=== PATIENT | female | born 1940 | race Caucasian/White ===

== ENCOUNTER → 2016-07-31 | Outpatient (CLI) | payer MEDICARE, BC ==
--- NOTE | 2016-08-05 13:16 | MM ---
Reason for exam: follow-up at short interval from prior study. Last mammogram was performed 6 months ago. History: Patient is postmenopausal. Took estrogen for 10 years beginning at age 48. Took progesterone for 10 years beginning at age 48. Physical Findings: Nurse did not find any significant physical abnormalities on exam. MG 3D Diag Mammo W/Cad LT CC and MLO view(s) were taken of the left breast. Prior study comparison: January 29, 2016, bilateral MG 3d screening mammo w/cad. There are scattered fibroglandular densities. No significant new findings when compared with previous films. These results were verbally communicated with the patient and result sheet given to the patient on 07/31/16. ASSESSMENT: Benign, BI-RAD 2 RECOMMENDATION: Return to routine screening mammogram schedule for both breasts. Back on schedule January 2017.
== END | disposition home or self-care (01) ==
LOC: RADMAMWWP 10:45
PROVIDERS: ATTEND Family Medicine
DX: R92.8 Other abnormal and inconclusive findings on diagnostic imaging of breast (principal)
CPT/HCPCS: G0206; G0279

== ENCOUNTER → 2017-02-20 | Outpatient (CLI) | payer MEDICARE, BC ==
--- NOTE | 2017-02-20 15:04 | BD ---
EXAMINATION TYPE: MG DEXA axial skeleton. DATE OF EXAM: 02/20/2017 COMPARISON: DEXA bone scan January 27, 2015 CLINICAL HISTORY: Height: 63 Weight: 201.0 FRAX RISK QUESTIONS: Alcohol (3 or more units per day): no Family History (Parent hip fracture): no Glucocorticoids (More than 3mos): no (Ex: prednisone, prednisolone, methylprednisolone, dexamethasone, and hydrocortisone). History of Fracture in Adulthood: no Secondary Osteoporosis: 1. Type 1 Diabetes: no 2. Hyperthyroidism: no 3. Menopause before 45: no 4. Malnutrition: no 5. Chronic liver disease: no Rheumatoid Arthritis: no Current Tobacco Use: no RISK FACTORS HISTORY OF: Hip Fracture (Right/Left): no Spine Fracture: no History of Wrist Fracture: right wrist When: age 15 Surgery to Spine/Hip(right/left)/Wrist (right/left): right wrist Family History of Osteoporosis: no Active: yes Diet low in dairy products/other sources of calcium: no Postmenopausal woman: around age 49 Lost more than 2 inches in height since high school: no Frequent falls: no Poor Health: no Hyperparathyroidism: no Adrenal Insufficiency: no MEDICATIONS: prilosec, vit d Thyroid Medications: synthroid How Long: since age 37 Additional History: EXAM MEASUREMENTS: Bone mineral densitometry was performed using the [employer] System. Bone mineral density as measured about the Lumbar spine is: ----- L1-L4(G/cm2): 1.152 T Score Values are as follows: ----- L2: -0.8 ----- L3: -0.1 ----- L4: 0.3 ----- L1-L4: -0.2 Bone mineral density has: decreased -4.2 % since study of: 01.27.2015 Bone mineral density about the R hip (g/cm2): 0.915 Bone mineral density about the L hip (g/cm2): 0.908 T Score values are as follows: -----R Neck: -0.9 -----L Neck: -0.9 -----R Total: -0.5 -----L Total: -0.1 Bone mineral density has: increased 0.5 % since study of: 01.27.2015 IMPRESSION: Normal (Values between +1 and -1 indicate normal bone mass). Consider repeating this study in 5 year s or sooner if there is some new clinical indication. NOTE: T-SCORE=SD OF THE YOUNG ADULT MEAN.
--- NOTE | 2017-02-21 09:51 | MM ---
Reason for exam: screening (asymptomatic). Last mammogram was performed 7 months ago. History: Patient is postmenopausal. Took estrogen for 10 years beginning at age 48. Took progesterone for 10 years beginning at age 48. Physical Findings: A clinical breast exam by your physician is recommended on an annual basis and results should be correlated with mammographic findings. MG 3D Screening Mammo W/Cad Bilateral CC and MLO view(s) were taken. Prior study comparison: July 31, 2016, left breast MG 3d diag mammo w/cad LT. January 29, 2016, bilateral MG 3d screening mammo w/cad. There are scattered fibroglandular densities. No suspicious abnormality. No significant changes when compared with prior studies. ASSESSMENT: Negative, BI-RAD 1 RECOMMENDATION: Routine screening mammogram of both breasts in 1 year.
== END | disposition home or self-care (01) ==
LOC: RADMAMWWP 13:48
PROVIDERS: ATTEND Obstetrics & Gynecology
DX: Z12.31 Encounter for screening mammogram for malignant neoplasm of breast (principal); Z13.820 Encounter for screening for osteoporosis
CPT/HCPCS: 77063; 77067; 77080

== ENCOUNTER 2017-10-06 14:38 | Emergency (ER) | payer MEDICARE, BC ==
--- NOTE | 2017-10-06 15:30 | ED ---
General Adult HPI - General Chief complaint: Abdominal Pain Stated complaint: abdominal pain/diarrhea Time Seen by Provider: 10/06/17 15:30 Source: patient Mode of arrival: ambulatory Limitations: no limitations - History of Present Illness Initial comments: Erica is a 77-year-old female who presents to the emergency department today for evaluation of 5 days of persistent diarrhea. Patient reports that on she developed diarrhea and abdominal cramping, she states that since that time any time she attempts to eat or drink anything she has bouts of abdominal cramping and yellow mucousy diarrhea. Patient reports that since development of the diarrhea she is developed some perianal irritation, she states that she's been applying Desitin cream to her anus due to the irritation and has noted some bright red blood when wiping. Patient reports that she previously has suffered from running constipation and has been on multiple medications for constipation in the past. She states that since Friday she has been taking Imodium with no improvement in her diarrhea. Patient reports that she cannot tolerate even drinking water without having diarrhea. Patient saw care this morning at a urgent care center where the in a glass of water so that she could provide a urine sample. Patient was able to provide a urine sample which is suggestive of a urinary tract infection. Patient was then advised to come to the ER for further evaluation. Patient reports that between leaving the urgent care and coming to the ER she had to stop 2 times to have bowel movements. Patient has no history of inflammatory or irritable bowel disease. She has no history of food ALLERGIES or diarrhea. Her last antibiotics were in June for treatment of a urinary tract infection. She has no history of C. diff - Related Data Home Medications Medication Instructions Recorded Confirmed Aspirin 81 mg PO DAILY 11/16/13 10/06/17 Diltiazem Cd [Cardizem Cd] 240 mg PO DAILY 11/16/13 10/06/17 Levothyroxine Sodium [Synthroid] 100 mcg PO DAILY 11/16/13 10/06/17 Triamterene-Hctz 37.5-25Mg 1 cap PO DAILY 11/16/13 10/06/17 [Dyazide 37.5-25 Capsule] Lisinopril [Zestril] 20 mg PO DAILY 10/06/17 10/06/17 Meclizine [Antivert] 12.5 mg PO TID 10/06/17 10/06/17 Omeprazole 20 mg PO DAILY 10/06/17 10/06/17 Pilocarpine [Salagen] 5 mg PO DAILY 10/06/17 10/06/17 Allergies Allergy/AdvReac Type Severity Reaction Status Date / Time Penicillins Allergy Rash/Hives Verified 10/06/17 17:51 Sulfa (Sulfonamide Allergy Rash/Hives Verified 10/06/17 17:51 Antibiotics) Review of Systems ROS Statement: Those systems with pertinent positive or pertinent negative responses have been documented in the HPI. ROS Other: All systems not noted in ROS Statement are negative. Past Medical History Past Medical History: Hypertension, Pneumonia, Thyroid Disorder Additional Past Medical History / Comment(s): PT HAD PNEUMONIA IN AUGUST 2013, STATES DR. VILLASENOR SAID THAT THERE IS A "SHADOW" ON THER RIGHT LUNG VIA X-RAY History of Any Multi-Drug Resistant Organisms: None Reported Past Surgical History: Appendectomy, Tonsillectomy Past Anesthesia/Blood Transfusion Reactions: No Reported Reaction Past Psychological History: No Psychological Hx Reported Smoking Status: Never smoker Past Alcohol Use History: Occasional Past Drug Use History: None Reported General Exam Limitations: no limitations Course Vital Signs 10/06/17 10/06/17 10/06/17 14:54 16:26 19:47 Temperature 97.2 F L Pulse Rate 99 82 86 Respiratory 20 18 16 Rate Blood Pressure 130/71 184/87 145/73 O2 Sat by Pulse 98 96 97 Oximetry 10/06/17 19:49 Temperature 98.5 F Pulse Rate Respiratory Rate Blood Pressure O2 Sat by Pulse Oximetry Medical Decision Making - Lab Data Result diagrams: 10/06/17 15:16 10/06/17 15:16 Lab Results 10/06/17 10/06/17 10/06/17 Range/Units 15:16 15:16 18:10 WBC 9.8 (3.8-10.6) k/uL RBC 4.91 (3.80-5.40) m/uL Hgb 14.7 (11.4-16.0) gm/dL Hct 46.3 H (34.0-46.0) % MCV 94.3 (80.0-100.0) fL MCH 30.0 (25.0-35.0) pg MCHC 31.8 (31.0-37.0) g/dL RDW 13.9 (11.5-15.5) % Plt Count 294 (150-450) k/uL Neutrophils % 77 % Lymphocytes % 12 % Monocytes % 7 % Eosinophils % 3 % Basophils % 0 % Neutrophils # 7.5 (1.3-7.7) k/uL Lymphocytes # 1.2 (1.0-4.8) k/uL Monocytes # 0.7 (0-1.0) k/uL Eosinophils # 0.3 (0-0.7) k/uL Basophils # 0.0 (0-0.2) k/uL Sodium 138 (137-145) mmol/L Potassium 4.7 (3.5-5.1) mmol/L Chloride 101 (98-107) mmol/L Carbon Dioxide 25 (22-30) mmol/L Anion Gap 12 mmol/L BUN 24 H (7-17) mg/dL Creatinine 1.30 H (0.52-1.04) mg/dL Est GFR (CKD-EPI)AfAm 47 (>60 ml/min/1.73 sqM) Est GFR (CKD-EPI)NonAf 40 (>60 ml/min/1.73 sqM) Glucose 96 (74-99) mg/dL Calcium 10.4 H (8.4-10.2) mg/dL Total Bilirubin 0.8 (0.2-1.3) mg/dL AST 25 (14-36) U/L ALT 39 (9-52) U/L Alkaline Phosphatase 105 (38-126) U/L Total Protein 7.3 (6.3-8.2) g/dL Albumin 4.3 (3.5-5.0) g/dL Amylase 62 (30-110) U/L Lipase 56 (23-300) U/L Urine Color Yellow Urine Appearance Clear (Clear) Urine pH 5.0 (5.0-8.0) Ur Specific [place] 1.012 (1.001-1.035) Urine Protein Trace H (Negative) Urine Glucose (UA) Negative (Negative) Urine Ketones Trace H (Negative) Urine Blood Negative (Negative) Urine Nitrite Negative (Negative) Urine Bilirubin Negative (Negative) Urine Urobilinogen <2.0 (<2.0) mg/dL Ur Leukocyte Esterase Moderate H (Negative) Urine RBC 1 (0-5) /hpf Urine WBC 13 H (0-5) /hpf Ur Squamous Epith Cells <1 (0-4) /hpf Hyaline Casts 7 H (0-2) /lpf Urine Mucus Rare H (None) /hpf Disposition Clinical Impression: Diarrhea Disposition: HOME SELF-CARE Condition: Good Instructions: Acute Diarrhea (ED) Is patient prescribed a controlled substance at d/c from ED?: No Referrals: Joanna Alvarado MD [Primary Care Provider] - 1-2 days Time of Disposition: 20:01
[2017-10-06] MEDS ORDERED: SODIUM CHLORIDE 0.9% 1,000 ML IV STA (15:47)
[2017-10-06 16:08] LABS: Basophils % (A) 0 %; Eosinophils # (A) 0.3 k/uL (0-0.7); Eosinophils % (A) 3 %; HCT 46.3 % (34.0-46.0); HGB 14.7 gm/dL (11.4-16.0); Lymphocytes # (A) 1.2 k/uL (1.0-4.8); Lymphocytes % (A) 12 %; MCHC 31.8 g/dL (31.0-37.0); MCV 94.3 fL (80.0-100.0); Monocytes # (A) 0.7 k/uL (0-1.0); Monocytes % (A) 7 %; Neutrophils # (A) 7.5 k/uL (1.3-7.7); Neutrophils % (A) 77 %; Platelet Count 294 k/uL (150-450); RBC 4.91 m/uL (3.80-5.40); RDW 13.9 % (11.5-15.5); WBC 9.8 k/uL (3.8-10.6)
[2017-10-06 16:09] LABS: Albumin 4.3 g/dL (3.5-5.0); Calcium 10.4 mg/dL (8.4-10.2); Potassium 4.7 mmol/L (3.5-5.1); Total Bilirubin 0.8 mg/dL (0.2-1.3); Total Protein 7.3 g/dL (6.3-8.2)
--- NOTE | 2017-10-06 16:24 | XR ---
Abdomen HISTORY: Pain, diarrhea and cramping Frontal view the abdomen on 2 images No comparisons Lung bases show some questionable atelectatic change. There is a spinal curvature. Degenerative disc changes are present in the visualized spine. No pathologic calcification. No evident obstruction or p neumoperitoneum. IMPRESSION: Nonobstructive bowel gas pattern. Additional findings above, follow-up as indicated.
[2017-10-06 18:32] LABS: Appearance,Urine Clear (Clear); Bilirubin,Urine Negative (Negative); Blood,Urine Negative (Negative); Color,Urine Yellow; Glucose,Urine (UA) Negative (Negative); Hyaline Casts,Urine 7 /lpf (0-2); Ketones,Urine Trace (Negative); Leukocyte Esterase,Urine Moderate (Negative); Mucus,Urine Rare /hpf; Nitrite,Urine Negative (Negative); Protein,Urine Trace (Negative); RBC,Urine 1 /hpf (0-5); Specific Gravity,Urine 1.012 (1.001-1.035); Squamous Epithelial Cell,Urine <1 /hpf (0-4); Urobilinogen,Urine <2.0 mg/dL (<2.0); WBC,Urine 13 /hpf (0-5)
[2017-10-06 19:48] VITALS: BP 145/73; PULSE 86; RESP 16
[2017-10-06 19:49] VITALS: TEMP 98.5
== END 2017-10-06 20:21 | disposition home or self-care (01) ==
LOC: EC 14:38
DX: R19.7 Diarrhea, unspecified (principal); R10.9 Unspecified abdominal pain; I10 Essential (primary) hypertension; Z79.82 Long term (current) use of aspirin; Z79.899 Other long term (current) drug therapy; Z88.0 Allergy status to penicillin; Z88.2 Allergy status to sulfonamides
CPT/HCPCS: 36415; 74018; 80053; 81001; 82150; 83690; 85025; 87086; 96360; 96361; 99284

== ENCOUNTER → 2018-02-23 | Outpatient (CLI) | payer MEDICARE, BC ==
--- NOTE | 2018-02-28 09:47 | MM ---
Reason for exam: screening (asymptomatic). Last mammogram was performed 1 year ago. History: Patient is postmenopausal. Took estrogen for 10 years beginning at age 48. Took progesterone for 10 years beginning at age 48. MG 3D Screening Mammo W/Cad Bilateral CC and MLO view(s) were taken. Prior study comparison: February 20, 2017, bilateral MG 3d screening mammo w/cad. July 31, 2016, left breast MG 3d diag mammo w/cad LT. There are scattered fibroglandular densities. There are benign-appearing round vascular calcifications in bilateral breast. No discrete abnormality. ASSESSMENT: Benign, BI-RAD 2 RECOMMENDATION: Routine screening mammogram of both breasts in 1 year.
== END | disposition home or self-care (01) ==
LOC: RADMAMWWP 12:43
PROVIDERS: ATTEND Obstetrics & Gynecology
DX: Z12.31 Encounter for screening mammogram for malignant neoplasm of breast (principal)
CPT/HCPCS: 77063; 77067